=== PATIENT | female | born 1985 | race African-American/Black ===

== ENCOUNTER 2020-07-12 19:23 | Emergency (ER) | payer OTHER ==
[2020-07-12 19:49] VITALS: BP 109/66; PULSE 84; TEMP 98.8; BMI 19.1
== END 2020-07-12 21:20 | disposition home or self-care (01) ==
LOC: JER 19:23
DX: R10.33 Periumbilical pain (principal)
CPT/HCPCS: 99281-25

== ENCOUNTER 2022-09-29 14:24 | Emergency (ER) | payer OTHER ==
[2022-09-29 14:46] VITALS: BP 103/61; PULSE 75; RESP 18; TEMP 98.2; BMI 20.2
[2022-09-29] MEDS ORDERED: ACETAMINOPHEN 500 MG TABLET (FP) PO ONE (15:47)
[2022-09-29] MEDS ORDERED: IBUPROFEN 400 MG TABLET (FP) PO ONE ×2 (15:47→15:54)
[2022-09-29] MEDS ORDERED: ACETAMINOPHEN 500 MG TABLET (FP) ONE (15:55)
== END 2022-09-29 19:22 | disposition home or self-care (01) ==
LOC: JERFT 14:24
DX: R07.89 Other chest pain (principal); S22.32XD Fracture of one rib, left side, subsequent encounter for fracture with routine healing; X58.XXXA Exposure to other specified factors, initial encounter; Y93.9 Activity, unspecified; Y92.9 Unspecified place or not applicable
CPT/HCPCS: 71046-TC-FY; 99283-25

== ENCOUNTER 2022-10-12 14:40 | Emergency (ER) | payer OTHER ==
[2022-10-12 14:51] VITALS: BP 103/69; PULSE 85; RESP 20; TEMP 99.1; BMI 20.2
[2022-10-12] MEDS ORDERED: AMOX TR/POT CLAV 500MG/125MG TABLETS (FP) PO ONE (15:25)
[2022-10-12] MEDS ORDERED: IBUPROFEN 600 MG TABLET (FP) PO ONE ×2 (15:25→15:34)
[2022-10-12] MEDS ORDERED: AMOX TR/POT CLAV 500MG/125MG TABLETS (FP) ONE (15:34)
== END 2022-10-12 16:12 | disposition home or self-care (01) ==
LOC: JERFT 14:40
DX: K08.89 Other specified disorders of teeth and supporting structures (principal)
CPT/HCPCS: 99283-25